=== PATIENT | male | born 1930 | race Caucasian/White ===

== ENCOUNTER 2017-01-18 21:38 | Inpatient (IN) | payer MEDICARE, OTHER ==
[2017-01-18 20:49] LABS: BASO % 0.1 % (0-2); EOS % 0.3 % (0-7); EOSINOPHIL ABSOLUTE COUNT 0.1 tho/cmm (0.0-0.7); HCT-HEMATOCRIT 43.7 % (36.0-53.5); HGB-HEMOGLOBIN 15.3 gm/dl (13.5-17.0); IMMATURE GRANULOCYTES ABSOLUTE 0.04 tho/cmm (0-0.03); IMMATURE GRANULOCYTES PERCENT 0.3 % (0-0.3); LYMPH % 3.2 % (20-45); LYMPH ABSOLUTE COUNT 0.5 tho/cmm (0.8-4.5); MCH (MEAN CORPUSCULAR HGB) 31.5 pg (28.0-32.0); MCV (MEAN CELL VOLUME) 89.9 fl (82.0-96.0); MEAN PLATELET VOLUME 9.9 cmc (9.4-12.4); MONO % 5.1 % (0-12); MONOCYTE ABSOLUTE COUNT 0.8 tho/cmm (0.0-1.2); NEUTROPHIL ABSOLUTE COUNT 14.4 tho/cmm (1.6-8.0); NEUTROPHIL-AUTOMATED 14.4 tho/cmm (1.6-8.0); PLATELET COUNT 136 tho/cmm (150-450); RED BLOOD COUNT 4.86 mil/cmm (4.40-5.70); WHITE BLOOD COUNT 15.8 tho/cmm (4.0-10.0)
[2017-01-18 20:54] LABS: URINE APPEARANCE CLEAR; URINE BILIRUBIN NEGATIVE (NEG); URINE BLOOD SMALL (NEG); URINE COLOR DARK YELLOW; URINE GLUCOSE (UA) SMALL (NEG); URINE KETONE SMALL (NEG); URINE LEUKOCYTE ESTERASE NEGATIVE (NEG); URINE NITRITE NEGATIVE (NEG); URINE PROTEIN MODERATE (NEG); URINE SPECIFIC GRAVITY 1.025 (1.003-1.030)
[2017-01-18 20:58] LABS: INR 3.1 INR (0.9-1.1); PROTHROMBIN TIME 37.1 SECONDS (9.0-13.6)
[2017-01-18 21:02] LABS: URINE AMORPHOUS 1+; URINE RBC RARE /[HPF] (0-5); URINE WBC RARE /[HPF] (0-5)
[2017-01-18 21:06] LABS: ALBUMIN 3.8 g/dl (3.5-5.0); ALKALINE PHOSPHATASE 88 U/L (33-138); ALT/SGPT 24 U/L (12-78); ANION GAP 12 mmol/L (0-20); AST/SGOT 20 U/L (10-40); BILIRUBIN,TOTAL 0.7 mg/dl (0.0-1.5); BLOOD UREA NITROGEN 43 mg/dl (6-24); CALCIUM 8.6 mg/dl (8.5-10.5); CARBON DIOXIDE-VENOUS 22 mmol/L (22-32); CHLORIDE 109 mmol/l (96-110); CREATININE 1.29 mg/dl (0.60-1.30); GLUCOSE 187 mg/dL (70-110); POTASSIUM 4.3 mmol/L (3.7-5.1); SODIUM 139 mmol/L (135-145); eGFR VALUE FOR BLACK 57 mL/Min
[~2017-01-18 21:38] MED LIST: ACETAMINOPHEN650 M4 PO; ARICEPT10 M1 PO; ARICEPT10 M2 PO; ARICEPT5 MG PO; ASPIR 8181 M1 PO; ASPIRIN81 MG PO; CAPOTEN; CAPOTEN25 MG; CAPOTEN25 MG PO; COREG6.25 M1 PO; COREG6.25 MG PO; COUMADIN1 MG PO; COUMADIN10 MG; COUMADIN5 M1 PO; COUMADIN5 MG; COUMADIN6 M1 PO; CYCLOBENZAPRINE5 M1 PO; ENTERIC ASPIRIN81 MG PO; LEVOFLOXACIN750 MG PO; LIDODERM700 MG TOP; NAMENDA10 M1 PO; NIFEDIPINE; NIFEDIPINE10 MG; NORCO 5-325 TA1 EACH PO; NORVASC2.5 MG PO; NORVASC5 M2 PO; NORVASC5 MG PO; WARFARIN SODIUM6 MG PO; ZOCOR40 M1 PO
[2017-01-19 05:04] LABS: INR 3.5 INR (0.9-1.1); PROTHROMBIN TIME 42.2 SECONDS (9.0-13.6)
[2017-01-19 05:11] LABS: BASO % 0.1 % (0-2); EOS % 0.3 % (0-7); HCT-HEMATOCRIT 40.6 % (36.0-53.5); HGB-HEMOGLOBIN 14.1 gm/dl (13.5-17.0); IMMATURE GRANULOCYTES ABSOLUTE 0.03 tho/cmm (0-0.03); IMMATURE GRANULOCYTES PERCENT 0.2 % (0-0.3); LYMPH % 5.3 % (20-45); LYMPH ABSOLUTE COUNT 0.8 tho/cmm (0.8-4.5); MCH (MEAN CORPUSCULAR HGB) 31.4 pg (28.0-32.0); MCHC MEAN CORPUSCULAR HGB CONC 34.7 % (32.0-36.0); MCV (MEAN CELL VOLUME) 90.4 fl (82.0-96.0); MEAN PLATELET VOLUME 9.8 cmc (9.4-12.4); MONO % 6.5 % (0-12); NEUTROPHIL ABSOLUTE COUNT 13.6 tho/cmm (1.6-8.0); NEUTROPHIL-AUTOMATED 13.6 tho/cmm (1.6-8.0); NEUTROPHILS % 87.6 % (40-80); PLATELET COUNT 132 tho/cmm (150-450); RED BLOOD COUNT 4.49 mil/cmm (4.40-5.70); RED CELL DISTRIBUTION WIDTH 15.2 % (12.4-16.4); WHITE BLOOD COUNT 15.6 tho/cmm (4.0-10.0)
[2017-01-19 05:21] LABS: ALB/GLOB RATIO 0.9 (0.8-2.0); ALBUMIN 3.2 g/dl (3.5-5.0); ALKALINE PHOSPHATASE 70 U/L (33-138); ALT/SGPT 21 U/L (12-78); ANION GAP 12 mmol/L (0-20); AST/SGOT 11 U/L (10-40); BILIRUBIN,TOTAL 0.8 mg/dl (0.0-1.5); BLOOD UREA NITROGEN 40 mg/dl (6-24); CALCIUM 8.3 mg/dl (8.5-10.5); CARBON DIOXIDE-VENOUS 24 mmol/L (22-32); CHLORIDE 111 mmol/l (96-110); CREATININE 1.08 mg/dl (0.60-1.30); GLUCOSE 122 mg/dL (70-110); MAGNESIUM 2.3 mg/dl (1.3-2.6); POTASSIUM 4.2 mmol/L (3.7-5.1); SODIUM 143 mmol/L (135-145); eGFR VALUE FOR BLACK 71 mL/Min
[2017-01-19 06:29] LABS: PROCALCITONIN 2.26 ng/ml (0.05-0.09)
[2017-01-19] MEDS ORDERED: LEVAQUIN750 M1 PO (09:37)
[2017-01-19] MEDS ORDERED: COUMADIN6 M1 PO (09:38)
[2017-01-19] MEDS ORDERED: ADULT WAL-TUSS118 M1 PO (09:40)
[2017-01-19] MEDS ORDERED: CULTURELLE1 EAC2 PO (09:41)
[2017-02-07] MEDS ORDERED: COUMADIN6 M1 PO (15:21)
== END 2017-01-19 10:08 | DRG 195 ==
LOC: EDMED 21:38 → EMR2 23:19 → 5WD 01-19 00:51
PROVIDERS: Emergency Medicine; Internal Medicine; ADMIT Hospitalist
DX: J18.9 Pneumonia, unspecified organism (principal); I48.91 Unspecified atrial fibrillation; F03.90 Unspecified dementia, unspecified severity, without behavioral disturbance, psychotic disturbance, mood disturbance, and anxiety; Z79.01 Long term (current) use of anticoagulants; I25.5 Ischemic cardiomyopathy; I25.10 Atherosclerotic heart disease of native coronary artery without angina pectoris; Z95.0 Presence of cardiac pacemaker; Z86.73 Personal history of transient ischemic attack (TIA), and cerebral infarction without residual deficits; I10 Essential (primary) hypertension; R60.0 Localized edema
CPT/HCPCS: G8978-GP-CJ; G8979-GP-CJ; G8980-GP-CJ; J1956; J7030

== ENCOUNTER 2017-02-07 15:47 | Emergency (ER) | payer MEDICARE, OTHER ==
[2017-02-07 15:27] LABS: BASO % 0.4 % (0-2); EOS % 2.1 % (0-7); EOSINOPHIL ABSOLUTE COUNT 0.2 tho/cmm (0.0-0.7); HCT-HEMATOCRIT 41.4 % (36.0-53.5); HGB-HEMOGLOBIN 14.5 gm/dl (13.5-17.0); IMMATURE GRANULOCYTES ABSOLUTE 0.01 tho/cmm (0-0.03); IMMATURE GRANULOCYTES PERCENT 0.1 % (0-0.3); LYMPH % 8.2 % (20-45); LYMPH ABSOLUTE COUNT 0.7 tho/cmm (0.8-4.5); MCH (MEAN CORPUSCULAR HGB) 31.3 pg (28.0-32.0); MCV (MEAN CELL VOLUME) 89.2 fl (82.0-96.0); MEAN PLATELET VOLUME 9.9 cmc (9.4-12.4); MONO % 10.4 % (0-12); MONOCYTE ABSOLUTE COUNT 0.9 tho/cmm (0.0-1.2); NEUTROPHIL ABSOLUTE COUNT 6.4 tho/cmm (1.6-8.0); NEUTROPHIL-AUTOMATED 6.4 tho/cmm (1.6-8.0); NEUTROPHILS % 78.8 % (40-80); PLATELET COUNT 182 tho/cmm (150-450); RED BLOOD COUNT 4.64 mil/cmm (4.40-5.70); RED CELL DISTRIBUTION WIDTH 14.6 % (12.4-16.4); WHITE BLOOD COUNT 8.2 tho/cmm (4.0-10.0)
[2017-02-07 15:29] LABS: INR 2.7 INR (0.9-1.1); PROTHROMBIN TIME 32.1 SECONDS (9.0-13.6)
[2017-02-07 15:46] LABS: ALBUMIN 3.6 g/dl (3.5-5.0); ALKALINE PHOSPHATASE 76 U/L (33-138); ALT/SGPT 28 U/L (12-78); ANION GAP 11 mmol/L (0-20); AST/SGOT 25 U/L (10-40); BILIRUBIN,TOTAL 0.6 mg/dl (0.0-1.5); BLOOD UREA NITROGEN 32 mg/dl (6-24); CALCIUM 8.4 mg/dl (8.5-10.5); CARBON DIOXIDE-VENOUS 25 mmol/L (22-32); CHLORIDE 109 mmol/l (96-110); CREATININE 1.15 mg/dl (0.60-1.30); GLUCOSE 106 mg/dL (70-110); POTASSIUM 4.4 mmol/L (3.7-5.1); SODIUM 141 mmol/L (135-145); eGFR VALUE FOR BLACK 66 mL/Min
[~2017-02-07 15:47] MED LIST changes: +ADULT WAL-TUSS118 M1 PO; +CULTURELLE1 EAC2 PO; +LEVAQUIN750 M1 PO
== END 2017-02-07 16:55 ==
LOC: EDMED 15:47
PROVIDERS: Emergency Medicine
DX: R55 Syncope and collapse (principal); F03.90 Unspecified dementia, unspecified severity, without behavioral disturbance, psychotic disturbance, mood disturbance, and anxiety; I48.91 Unspecified atrial fibrillation; I25.10 Atherosclerotic heart disease of native coronary artery without angina pectoris; I10 Essential (primary) hypertension; Z86.79 Personal history of other diseases of the circulatory system; Z79.82 Long term (current) use of aspirin; Z79.899 Other long term (current) drug therapy; Z98.890 Other specified postprocedural states
CPT/HCPCS: J7030